=== PATIENT | male | born 1975 | race Caucasian/White ===

== ENCOUNTER → 2018-05-12 | Outpatient (CLI) | payer OTHER | LOC: FIMAGING 06:49 | PROVIDERS: ATTEND Psychiatry & Neurology Neurology | DX: R40.4 Transient alteration of awareness (principal); R55 Syncope and collapse ==

== ENCOUNTER → 2018-05-17 | Outpatient (CLI) | payer OTHER ==
--- NOTE | 2018-05-17 22:27 | CPEEG ---
DATE OF STUDY: 05/17/2018 INTERPRETATION: Normal EEG during wakefulness and sleep. There were no potentially epileptogenic ab normalities present during the recording. REPORT: This EEG contains 10 Hz alpha activity over the posterior head regions. There was no abnorm al activation at rest or during photic stimulation or hyperventilation. The patient became drowsy an d fell asleep during the study. During drowsiness, there were nonspecific wicket-like waves and bite mporal theta activity, maximal left. These are normal drowsy variants. There was no abnormal activa tion during drowsiness, sleep, or during times of arousal. /[id number]/MODL
== END ==
LOC: FCPNEURO 09:48
PROVIDERS: ATTEND Psychiatry & Neurology Neurology
DX: R55 Syncope and collapse (principal); R40.4 Transient alteration of awareness

== ENCOUNTER → 2018-09-06 | Outpatient (CLI) | payer OTHER | LOC: FIMAGING 08:02 | PROVIDERS: ATTEND Psychiatry & Neurology Neurology | DX: I62.9 Nontraumatic intracranial hemorrhage, unspecified (principal) ==